=== PATIENT | female | born 1995 | race Caucasian/White ===

== ENCOUNTER 2018-12-08 10:34 | Emergency (ER) | payer OTHER, MEDICAID, SELFPAY ==
[2018-12-08 10:46] VITALS: BP 127/85; PULSE 111; RESP 18; TEMP 36.6; O2SAT 97; BMI 31.1
--- NOTE | 2018-12-08 11:06 | ED.FEMALEGU ---
HPI - Female Genitourinary <Tatiana Carr PA-C - Last Filed: 12/08/18 14:55> General Chief complaint: Urogenital-Female Stated complaint: Ovarian syst rupture Time Seen by Provider: 12/08/18 10:51 Source: patient Mode of arrival: ambulatory Limitations: no limitations History of Present Illness HPI Narrative: This 22-year-old female comes to ED due to worsening left sided pelvic pain which has been present for about 2 weeks. She describes it as crampy and like contractions. She has an appointment with her high school vice principal next week but is concerned about increasing pain. She was seen at another local hospital 9 days ago and diagnosed with hemorrhagic cyst, prescribed and set and tramadol. She states that she is concerned that she had to actually take 1 of the tramadol last night due to worsening pain. She denies possibility of , has IUD for control. She denies any discharge or STD concerns. She states that she has very minimal stinging with urination that she might treat with cranberry juice, just for the last few days. She states that she does have a history of recurrent UTI. She states that she has not had any new abdominal pain, no new back pain, no nausea or vomiting, no fever, chills, sweats or other new symptoms. Pain remains very localized on the left side of the pelvis Related Data Home Medications Medication Instructions Recorded Confirmed metronidazole 500 mg PO BID 12/08/18 12/08/18 naproxen 375 mg PO BID 12/08/18 12/08/18 Previous Rx's Medication Instructions Recorded cyclobenzaprine 5 mg PO BIDP PRN #5 tab 07/23/17 Allergies Allergy/AdvReac Type Severity Reaction Status Date / Time Penicillins [PENICILLINS] AdvReac Intermediate hives Unverified 10/01/17 12:50 Review of Systems <Tatiana Carr PA-C - Last Filed: 12/08/18 14:55> Review of Systems ROS Unobtainable: All systems reviewed & are unremarkable except as noted in HPI and below PFSH <Tatiana Carr PA-C - Last Filed: 12/08/18 14:55> Medical History (Updated 12/08/18 @ 12:58 by Tatiana Carr PA-C) Degenerative disc disease, cervical (Chronic) History of prescription drug abuse (Resolved) Surgical History (Updated 12/08/18 @ 11:34 by Tatiana Carr PA-C) No history of previous surgery (Chronic) Social History Smoking Status: Current every day smoker Social History Smoking Status: Current every day smoker Exam <Tatiana Carr PA-C - Last Filed: 12/08/18 14:55> Narrative Exam Narrative: GENERAL APPEARANCE: Patient sitting comfortably, in no distress. HEENT: PERRL, EOMI, conjunctivae pain LUNGS: Clear to auscultation bilaterally. HEART: Rate and rhythm regular without murmur, normal S1 and S2, no S3 or S4. ABDOMEN: Soft, NT, ND, +BS x 4 quadrants, no CVAT. Mild tenderness left suprapubic area without guarding or rebound EXTREMITIES: No edema, no cyanosis Initial Vital Signs Initial Vital Signs: Vital Signs Temperature 97.8 F 12/08/18 10:46 Pulse Rate 111 H 12/08/18 10:46 Respiratory Rate 18 12/08/18 10:46 Blood Pressure 127/85 12/08/18 10:46 Pulse Oximetry 97 12/08/18 10:46 <Joe Del Castillo DO - Last Filed: 12/08/18 19:15> Initial Vital Signs Initial Vital Signs: Vital Signs Temperature 97.8 F 12/08/18 10:46 Pulse Rate 111 H 12/08/18 10:46 Respiratory Rate 18 12/08/18 10:46 Blood Pressure 127/85 12/08/18 10:46 Pulse Oximetry 97 12/08/18 10:46 Course <Tatiana Carr PA-C - Last Filed: 12/08/18 14:55> Additional Information: Reviewed findings with patient as well as results of her previous workup. Advised follow-up on septated cyst. No hemorrhagic cyst and smaller than present previously, so explained she may have had some bleeding around this explaining her pain. She will use her current medications and agrees to follow up with her WOUND CARE COORDINATOR/high school vice principal. Given disc copy ultrasound report. She agreed to return to ED if acutely worsening symptoms or changes in the interim Orders Ordered: ED Orders 12/08/18 11:30 US pelvic complete Stat Vital Signs - 8 hr 12/08/18 12:22 Pulse Rate 84 Respiratory Rate 16 Blood Pressure [Right Arm] 105/55 L Pulse Oximetry 98 <Joe Del Castillo DO - Last Filed: 12/08/18 19:15> Orders Ordered: ED Orders 12/08/18 11:30 US pelvic complete Stat Vital Signs - 8 hr 12/08/18 12:22 Pulse Rate 84 Respiratory Rate 16 Blood Pressure [Right Arm] 105/55 L Pulse Oximetry 98 MDM - Female Genitourinary <Tatiana Carr PA-C - Last Filed: 12/08/18 14:55> Lab Data Attestation: I reviewed the patient's lab results. Point of Care Testing Test Results Negative Urine Dip Bedside Urine Glucose Negative Bedside Urine Bilirubin - Negative Bedside Urine Ketone - Negative Urine Specific [place] 1.030 Bedside Urine Occult Blood +/- Bedside Urine pH 5.5 Bedside Urine Protein - Negative Bedside Urine Urobilinogen - Negative Bedside Urine Nitrite - Negative Bedside Urine Leukocytes - Negative Esterase Imaging Data pelvis US: Radiologist's impression: Chart Viewer Diagnostics DATE TYPE STATUS AUTHOR Hx 12/08/18 11:30 Jack Barreto Elizabeth H 22, F1995 DEP ER, ED.LOC - Main ED 157.48cm 77.111kg BMI: 31.1kg/m? Urogenital-Female Search Chart hives ONSET Today 12:22 Funmi Ramirez 22 F 1995 [place] [id number] Ultrasound Report Signed Patient: JamesFunmi HMR#: [id number] : 1995Acct:[id number] Age/Sex: 22 / FDate of Service: 12/08/18 Loc: ED Accession Number: [id number] Procedure: US pelvic complete Ordering Provider: Tatiana Carr P.A-C PROCEDURE: US PELVIC COMPLETE INDICATIONS: PAIN; HX HEMORRHAGIC CYST TECHNIQUE: Real-time scanning was performed of the pelvic organs, with image documentation. Additional endovaginal scanning was necessary due to incomplete visualization of the adnexal and endometrial structures by transabdominal scanning. COMPARISON: None. FINDINGS: Transabdominal scanning: Limited scanning through the kidneys shows no hydronephrosis. No pathologic free abdominal or pelvic fluid. Endovaginal scanning: Uterus: Uterus is normal in size at 7.8 x 3.2 x 5.7 cm. The endometrium measures 3-4 mm in combined thickness. IUD appears appropriately positioned Ovaries: Right ovary 2.6 x 1.9 x 1.7 cm and is unremarkable. Left ovary 1.8 x 1.7 1.6 cm. 1.2 x 0.9 x 0.9 cm septated cyst, versus closely apposed multiple follicles, is seen. No definite involuting or hemorrhagic cyst is identified. IMPRESSION: Appropriately positioned IUD. No definite evidence of hemorrhagic cyst. No pathologic pelvic free fluid. Mildly complicated left ovarian cyst. Dictated by: Jack Barreto M.D. on 12/08/2018 at 12:59 Approved by: Jack Barreto M.D. on 12/08/2018 at 13:02 <Joe Del Castillo DO - Last Filed: 12/08/18 19:15> Lab Data Point of Care Testing Test Results Negative Urine Dip Bedside Urine Glucose Negative Bedside Urine Bilirubin - Negative Bedside Urine Ketone - Negative Urine Specific [place] 1.030 Bedside Urine Occult Blood +/- Bedside Urine pH 5.5 Bedside Urine Protein - Negative Bedside Urine Urobilinogen - Negative Bedside Urine Nitrite - Negative Bedside Urine Leukocytes - Negative Esterase Discharge Plan Departure Patient Disposition: Home Clinical Impression: Ovarian cyst Qualifiers: Laterality: left Qualified Code(s): N83.202 - Unspecified ovarian cyst, left side Discharge Date/Time: 12/08/18 13:06 Interventions: ED Discharge Assessment Last Done: 12/08/18 13:06 Instructions: DI for Ovarian Cyst Activity Restrictions/Additional Instructions: Your ultrasound today did show a left-sided cyst, but it is not bleeding at this point, so may be the increased pain that you have had was from bleeding around the cyst. You should follow-up with your high school vice principal as we talked about to make sure this is resolving as expected. Please take your ultrasound disc with you. Please take your naproxen regularly. When you need to take tramadol, do that and take it with a Tylenol as they work well together. Your urine testing was negative for or infection today. You can talk with your high school vice principal when you see her next week about whether you want to treat the BV that showed up on previous testing. You should return to the ED as we talked about if you have acutely worsening or new symptoms such as vomiting or fever, or abrupt change in pain. Prescriptions: No Action cyclobenzaprine 5 MG tablet 5 mg PO BIDP PRNQty: 5 RF: 0 naproxen 375 mg tablet 375 mg PO BID RF: 0 metronidazole 500 mg tablet 500 mg PO BID RF: 0 Referrals: Minerva Hightower ARNP [Non-Staff] - Brittany Rodriguez [Non-Staff] - <Joe Del Castillo DO - Last Filed: 12/08/18 19:15> Cosign ED Attending Kaycee Attestation: I was immediately available in the department for consultation. Documentation has been reviewed. I agree with assessment and plan.
--- NOTE | 2018-12-08 11:30 | DI.US.S_ITS ---
PROCEDURE: US PELVIC COMPLETE INDICATIONS: PAIN; HX HEMORRHAGIC CYST TECHNIQUE: Real-time scanning was performed of the pelvic organs, with image documentation. Additional endovaginal scanning was necessary due to incomplete visualization of the adnexal and endometrial structures by transabdominal scanning. COMPARISON: None. FINDINGS: Transabdominal scanning: Limited scanning through the kidneys shows no hydronephrosis. No pathologic free abdominal or pelvic fluid. Endovaginal scanning: Uterus: Uterus is normal in size at 7.8 x 3.2 x 5.7 cm. The endometrium measures 3-4 mm in combined thickness. IUD appears appropriately positioned Ovaries: Right ovary 2.6 x 1.9 x 1.7 cm and is unremarkable. Left ovary 1.8 x 1.7 1.6 cm. 1.2 x 0.9 x 0.9 cm septated cyst, versus closely apposed multiple follicles, is seen. No definite involuting or hemorrhagic cyst is identified. IMPRESSION: Appropriately positioned IUD. No definite evidence of hemorrhagic cyst. No pathologic pelvic free fluid. Mildly complicated left ovarian cyst. Dictated by: Jack Barreto M.D. on 12/08/2018 at 12:59 Approved by: Jack Barreto M.D. on 12/08/2018 at 13:02
--- NOTE | 2018-12-08 11:34 | ED_ITS ---
HPI - Female Genitourinary <Tatiana Carr PA-C - Last Filed: 12/08/18 14:55> General Chief complaint: Urogenital-Female Stated complaint: Ovarian syst rupture Time Seen by Provider: 12/08/18 10:51 Source: patient Mode of arrival: ambulatory Limitations: no limitations History of Present Illness HPI Narrative: This 22-year-old female comes to ED due to worsening left sided pelvic pain which has been present for about 2 weeks. She describes it as crampy and like contractions. She has an appointment with her marsh buggy operator next week but is concerned about increasing pain. She was seen at another local hospital 9 days ago and diagnosed with hemorrhagic cyst, prescribed and set and tramadol. She states that she is concerned that she had to actually take 1 of the tramadol last night due to worsening pain. She denies possibility of , has IUD for control. She denies any discharge or STD concerns. She states that she has very minimal stinging with urination that she might treat with cranberry juice, just for the last few days. She states that she does have a history of recurrent UTI. She states that she has not had any new abdominal pain, no new back pain, no nausea or vomiting, no fever, chills, sweats or other new symptoms. Pain remains very localized on the left side of the pelvis Related Data Home Medications Medication Instructions Recorded Confirmed metronidazole 500 mg PO BID 12/08/18 12/08/18 naproxen 375 mg PO BID 12/08/18 12/08/18 Previous Rx's Medication Instructions Recorded cyclobenzaprine 5 mg PO BIDP PRN #5 tab 07/23/17 Allergies Allergy/AdvReac Type Severity Reaction Status Date / Time Penicillins [PENICILLINS] AdvReac Intermediate hives Unverified 10/01/17 12:50 Review of Systems <Tatiana Carr PA-C - Last Filed: 12/08/18 14:55> Review of Systems ROS Unobtainable: All systems reviewed & are unremarkable except as noted in HPI and below PFSH <Tatiana Carr PA-C - Last Filed: 12/08/18 14:55> Medical History (Updated 12/08/18 @ 12:58 by Tatiana Carr PA-C) Degenerative disc disease, cervical (Chronic) History of prescription drug abuse (Resolved) Surgical History (Updated 12/08/18 @ 11:34 by Tatiana Carr PA-C) No history of previous surgery (Chronic) Social History Smoking Status: Current every day smoker Social History Smoking Status: Current every day smoker Exam <Tatiana Carr PA-C - Last Filed: 12/08/18 14:55> Narrative Exam Narrative: GENERAL APPEARANCE: Patient sitting comfortably, in no distress. HEENT: PERRL, EOMI, conjunctivae pain LUNGS: Clear to auscultation bilaterally. HEART: Rate and rhythm regular without murmur, normal S1 and S2, no S3 or S4. ABDOMEN: Soft, NT, ND, +BS x 4 quadrants, no CVAT. Mild tenderness left suprapubic area without guarding or rebound EXTREMITIES: No edema, no cyanosis Initial Vital Signs Initial Vital Signs: Vital Signs Temperature 97.8 F 12/08/18 10:46 Pulse Rate 111 H 12/08/18 10:46 Respiratory Rate 18 12/08/18 10:46 Blood Pressure 127/85 12/08/18 10:46 Pulse Oximetry 97 12/08/18 10:46 <Joe Del Castillo DO - Last Filed: 12/08/18 19:15> Initial Vital Signs Initial Vital Signs: Vital Signs Temperature 97.8 F 12/08/18 10:46 Pulse Rate 111 H 12/08/18 10:46 Respiratory Rate 18 12/08/18 10:46 Blood Pressure 127/85 12/08/18 10:46 Pulse Oximetry 97 12/08/18 10:46 Course <Tatiana Carr PA-C - Last Filed: 12/08/18 14:55> Additional Information: Reviewed findings with patient as well as results of her previous workup. Advised follow-up on septated cyst. No hemorrhagic cyst and smaller than present previously, so explained she may have had some bleeding around this explaining her pain. She will use her current medications and agrees to follow up with her ADVERTISING ANALYST/marsh buggy operator. Given disc copy ultrasound report. She agreed to return to ED if acutely worsening symptoms or changes in the interim Orders Ordered: ED Orders 12/08/18 11:30 US pelvic complete Stat Vital Signs - 8 hr 12/08/18 12:22 Pulse Rate 84 Respiratory Rate 16 Blood Pressure [Right Arm] 105/55 L Pulse Oximetry 98 <Joe Del Castillo DO - Last Filed: 12/08/18 19:15> Orders Ordered: ED Orders 12/08/18 11:30 US pelvic complete Stat Vital Signs - 8 hr 12/08/18 12:22 Pulse Rate 84 Respiratory Rate 16 Blood Pressure [Right Arm] 105/55 L Pulse Oximetry 98 MDM - Female Genitourinary <Tatiana Carr PA-C - Last Filed: 12/08/18 14:55> Lab Data Attestation: I reviewed the patient's lab results. Point of Care Testing Test Results Negative Urine Dip Bedside Urine Glucose Negative Bedside Urine Bilirubin - Negative Bedside Urine Ketone - Negative Urine Specific [place] 1.030 Bedside Urine Occult Blood +/- Bedside Urine pH 5.5 Bedside Urine Protein - Negative Bedside Urine Urobilinogen - Negative Bedside Urine Nitrite - Negative Bedside Urine Leukocytes - Negative Esterase Imaging Data pelvis US: Radiologist's impression: Chart Viewer Diagnostics DATE TYPE STATUS AUTHOR Hx 12/08/18 11:30 Jack Barreto Elizabeth H 22, F1995 DEP ER, ED.LOC - Main ED 157.48cm 77.111kg BMI: 31.1kg/m? Urogenital-Female Search Chart hives ONSET Today 12:22 Funmi Ramirez 22 F 1995 [place] [id number] Ultrasound Report Signed Patient: JamesFunmi HMR#: [id number] : 1995Acct:[id number] Age/Sex: 22 / FDate of Service: 12/08/18 Loc: ED Accession Number: [id number] Procedure: US pelvic complete Ordering Provider: Tatiana Carr P.A-C PROCEDURE: US PELVIC COMPLETE INDICATIONS: PAIN; HX HEMORRHAGIC CYST TECHNIQUE: Real-time scanning was performed of the pelvic organs, with image documentation. Additional endovaginal scanning was necessary due to incomplete visualization of the adnexal and endometrial structures by transabdominal scanning. COMPARISON: None. FINDINGS: Transabdominal scanning: Limited scanning through the kidneys shows no hydronephrosis. No pathologic free abdominal or pelvic fluid. Endovaginal scanning: Uterus: Uterus is normal in size at 7.8 x 3.2 x 5.7 cm. The endometrium measures 3-4 mm in combined thickness. IUD appears appropriately positioned Ovaries: Right ovary 2.6 x 1.9 x 1.7 cm and is unremarkable. Left ovary 1.8 x 1.7 1.6 cm. 1.2 x 0.9 x 0.9 cm septated cyst, versus closely apposed multiple follicles, is seen. No definite involuting or hemorrhagic cyst is identified. IMPRESSION: Appropriately positioned IUD. No definite evidence of hemorrhagic cyst. No pathologic pelvic free fluid. Mildly complicated left ovarian cyst. Dictated by: Jack Barreto M.D. on 12/08/2018 at 12:59 Approved by: Jack Barreto M.D. on 12/08/2018 at 13:02 <Joe Del Castillo DO - Last Filed: 12/08/18 19:15> Lab Data Point of Care Testing Test Results Negative Urine Dip Bedside Urine Glucose Negative Bedside Urine Bilirubin - Negative Bedside Urine Ketone - Negative Urine Specific [place] 1.030 Bedside Urine Occult Blood +/- Bedside Urine pH 5.5 Bedside Urine Protein - Negative Bedside Urine Urobilinogen - Negative Bedside Urine Nitrite - Negative Bedside Urine Leukocytes - Negative Esterase Discharge Plan Departure Patient Disposition: Home Clinical Impression: Ovarian cyst Qualifiers: Laterality: left Qualified Code(s): N83.202 - Unspecified ovarian cyst, left side Discharge Date/Time: 12/08/18 13:06 Interventions: ED Discharge Assessment Last Done: 12/08/18 13:06 Instructions: DI for Ovarian Cyst Activity Restrictions/Additional Instructions: Your ultrasound today did show a left-sided cyst, but it is not bleeding at this point, so may be the increased pain that you have had was from bleeding around the cyst. You should follow-up with your marsh buggy operator as we talked about to make sure this is resolving as expected. Please take your ultrasound disc with you. Please take your naproxen regularly. When you need to take tramadol, do that and take it with a Tylenol as they work well together. Your urine testing was negative for or infection today. You can talk with your marsh buggy operator when you see her next week about whether you want to treat the BV that showed up on previous testing. You should return to the ED as we talked about if you have acutely worsening or new symptoms such as vomiting or fever, or abrupt change in pain. Prescriptions: No Action cyclobenzaprine 5 MG tablet 5 mg PO BIDP PRNQty: 5 RF: 0 naproxen 375 mg tablet 375 mg PO BID RF: 0 metronidazole 500 mg tablet 500 mg PO BID RF: 0 Referrals: Minerva Hightower ARNP [Non-Staff] - Brittany Rodriguez [Non-Staff] - <Joe Del Castillo DO - Last Filed: 12/08/18 19:15> Cosign ED Attending Kaycee Attestation: I was immediately available in the department for consultation. Documentation has been reviewed. I agree with assessment and plan.
--- NOTE | 2018-12-08 12:17 | PC.NURSE ---
seen and evaluated at [facility] a week ago, given rx narcotics states, not better, now with left lower abdominal pain radiating to the back with radiating leg pain, states, has back nerve issue in the past. denies fever,vomiting, has nausea, normal last bm yesterday. described discomfort as pulling muscles. better at rest, worsen with activity. has IUD last menses august 2017
[2018-12-08 12:22] VITALS: BP 105/55; PULSE 84; RESP 16; O2SAT 98
== END 2018-12-08 13:06 | disposition home or self-care (01) ==
PROVIDERS: Emergency Provider Internal Medicine
DX: N83.202 Unspecified ovarian cyst, left side (principal)
CPT/HCPCS: 76830; 76856; 81003; 81025; 99282; 99283

== ENCOUNTER 2019-01-02 12:50 | Emergency (ER) | payer OTHER, MEDICAID, SELFPAY ==
[2019-01-02 13:15] VITALS: BP 115/63; PULSE 92; RESP 18; TEMP 36.8; O2SAT 98
[2019-01-02 14:33] LABS: Bacteria Urine None Seen; RBC Urine None Seen (0-5/HPF)
[2019-01-02 14:36] LABS: Appearance Urine UA CLEAR; Bilirubin Urine UA NEGATIVE (NEGATIVE); Color Urine UA YELLOW; Glucose Urine UA NEGATIVE (Negative); Ketones Urine UA NEGATIVE (NEGATIVE); Leukocyte Esterase Urine UA NEGATIVE (NEGATIVE); Nitrite Urine UA NEGATIVE (Negative); Occult Blood Urine UA NEGATIVE (Negative); Protein Urine UA NEGATIVE (Negative); Urobilinogen Urine UA 0.2 E.U./dL (0.2); pH Urine UA 6.5 (4.5-8.0)
[2019-01-02 14:38] LABS: Pregnancy Test Urine Negative (Negative)
[2019-01-02 14:41] LABS: Culture Indicated Urine Cult Not Indicated; Squamous Epithelial Cell Urine 1-5 /HPF (0-5/HPF); WBC Urine 0-1/HPF (0-5/HPF)
--- NOTE | 2019-01-02 14:59 | ED.ABDPAIN ---
HPI - Abdominal Pain <JAILYN Blake - Last Filed: 01/02/19 22:04> General Chief Complaint: Abdominal Pain Stated Complaint: SHARP LOWER ABDOMINAL PAIN Time Seen by Provider: 01/02/19 14:31 Source: patient Mode of arrival: ambulatory Limitations: no limitations History of Present Illness HPI narrative: 23-year-old female who has a history of a bleeding ovarian cyst and currently has an IUD that was placed in July of this year, presents emergency department complaining of lower pelvic pain starting yesterday after having sex. States she took a tramadol last night because the pain is keeping her awake, after the medication she was able to sleep 7 hours. States pain is a 8/10 sharp aching that has gotten slightly better today. This morning when she woke up she was walking across the floor when she felt lightheaded and apparently passed out, this was witnessed by her , she states it lasted a few minutes. Denies chest pain, head trauma, shortness of breath, nausea, vomiting, change in bowel patterns, dysuria, vaginal discharge, or concern for STDs. Pain Consistency: constant Location: diffuse Severity scale (1-10): 8 Quality: aching Relieving factors: nothing Exacerbating factors: nothing Related Data Home Medications Medication Instructions Recorded Confirmed metronidazole 500 mg PO BID 12/08/18 12/08/18 naproxen 375 mg PO BID 12/08/18 12/08/18 Previous Rx's Medication Instructions Recorded cyclobenzaprine 5 mg PO BIDP PRN #5 tab 07/23/17 Allergies Allergy/AdvReac Type Severity Reaction Status Date / Time Penicillins [PENICILLINS] AdvReac Intermediate hives Unverified 10/01/17 12:50 Review of Systems <JAILYN Blake - Last Filed: 01/02/19 22:04> Review of Systems REVIEW OF SYSTEMS: GENERAL: Denies fever, chills, malaise, or wt. loss. HENT: No head trauma, sore throat, or dysphagia. EYES: No loss of vision, double vision, eye pain, or irritation. CARDIOVASCULAR: No chest pain, palpitations, or orthopnea. RESPIRATORY: No shortness of breath or cough. GASTROINTESTINAL: Complains of lower abdominal pain, see HPI GENITOURINARY: No flank pain, urinary incontinence, hesitancy, frequency, or dysuria. Complains of pain after coitus, see HPI. MUSCULOSKELETAL: No pain, weakness, or trauma. INTEGUMENTARY: No rash, lesions, or pruritus. NEURO: No numbness, tingling, memory loss, confusion, or headaches. PSYCH: No behavior or mood changes. PFSH <JAILYN Blake - Last Filed: 01/02/19 22:04> Medical History Degenerative disc disease, cervical (Chronic) History of prescription drug abuse (Resolved) Surgical History No history of previous surgery (Chronic) Social History Smoking Status: Current every day smoker Social History Smoking Status: Current every day smoker Exam <JAILYN Blake - Last Filed: 01/02/19 22:04> Initial Vital Signs Initial Vital Signs: Vital Signs Temperature 98.2 F 01/02/19 13:15 Pulse Rate 92 H 01/02/19 13:15 Respiratory Rate 18 01/02/19 13:15 Blood Pressure 115/63 01/02/19 13:15 Pulse Oximetry 98 01/02/19 13:15 PHYSICAL EXAMINATION: GENERAL: Well groomed, alert, and cooperative. Answers questions promptly and appropriately. Vital signs noted. HENT: Normocephalic, atraumatic. Hearing intact. Oral mucosa is pink and moist. EYES: Conjunctiva pink, sclera white, no periorbital swelling. CARDIOVASCULAR: S1 and S2 sounds normal. Regular rate and rhythm, no murmurs, clicks, or bruits. No pedal edema. RESPIRATORY: Normal respiratory rate, trachea midline, airway patent. No stridor, nasal flaring or accessory muscle use. Lungs are clear in all [place] without wheeze, rhonchi, or crackles. GASTROINTESTINAL: Bowel sounds normoactive. Abdomen is soft. Very slight tenderness lower mid abdomen/pelvic area with deep palpation No organomegaly, no palpable masses. GENITALURINARY: No flank tenderness. MUSCULOSKELETAL: Normal gait and coordination. Equal tone and mass bilaterally. EXTREMITIES: CMS intact, no pedal edema. SKIN: Warm, dry, soft, appropriate color for ethnicity. No lesions, rashes, or wounds. NEURO: Alert and Oriented X 3. Good coordination. No ataxia, or sensory deficits, or cognitive issues. PSYCH: Appropriate affect and mood. <Ramonita Mc DO - Last Filed: 01/05/19 18:41> Initial Vital Signs Initial Vital Signs: Vital Signs Temperature 98.2 F 01/02/19 13:15 Pulse Rate 92 H 01/02/19 13:15 Respiratory Rate 18 01/02/19 13:15 Blood Pressure 115/63 01/02/19 13:15 Pulse Oximetry 98 01/02/19 13:15 Course <JAILYN Blake - Last Filed: 01/02/19 22:04> Course Narrative: Patient states she is feeling a little better after her emergency department stay. Orders Ordered: ED Orders 01/02/19 13:17 EKG-12 Lead Stat 01/02/19 14:15 Test Urine Stat Urinalysis and Microscopic Stat 01/02/19 14:50 Complete Blood Count AUTO DIFF Stat Comprehensive Metabolic Panel Stat Lipase Stat Partial Thromboplastin Time Stat Prothrombin Time INR Stat 01/02/19 15:05 US pelvic complete Stat Consultations Consultation #1: Patient staffed with Dr. Mc. Vital Signs - 8 hr 01/02/19 15:46 01/02/19 16:53 Pulse Rate 91 H 60 Respiratory Rate 16 15 Blood Pressure [Left Arm] 108/58 L 113/66 Pulse Oximetry 99 100 <Ramonita Mc DO - Last Filed: 01/05/19 18:41> Orders Ordered: ED Orders 01/02/19 13:17 EKG-12 Lead Stat 01/02/19 14:15 Test Urine Stat Urinalysis and Microscopic Stat 01/02/19 14:50 Complete Blood Count AUTO DIFF Stat Comprehensive Metabolic Panel Stat Lipase Stat Partial Thromboplastin Time Stat Prothrombin Time INR Stat 01/02/19 15:05 US pelvic complete Stat Vital Signs - 8 hr 01/02/19 15:46 01/02/19 16:53 Pulse Rate 91 H 60 Respiratory Rate 16 15 Blood Pressure [Left Arm] 108/58 L 113/66 Pulse Oximetry 99 100 MDM - Abdominal Pain <JAILYN Blake - Last Filed: 01/02/19 22:04> Medical Records Attestation: I reviewed the patient's medical records. Lab Data Attestation: I reviewed the patient's lab results. Result diagrams: 01/02/19 14:50 01/02/19 14:50 Lab Results 01/02/19 01/02/19 01/02/19 Range/Units 14:15 14:15 14:50 WBC 8.6 (4.5-11.0) X10^3/uL RBC 4.81 (4.0-5.2) X10^6/uL Hgb 13.8 (12.0-16.0) g/dL Hct 40.3 (36-46) % MCV 83.7 (80-100) fL MCH 28.6 (26-34) PG MCHC 34.2 (30-36) % RDW 13.1 (11.6-14.8) % Plt Count 324 (150-400) X10^3/uL Neut % (Auto) 66.0 (50-75) % Lymph % (Auto) 22.8 L (25-40) % [place] % (Auto) 5.9 (3-14) % Eos % (Auto) 4.3 H (2-4) % Baso % (Auto) 1.0 (0-2) % Neut # (Auto) 5700 (8059-5672) /uL Lymph # (Auto) 2000 (7746-9640) /uL [place] # (Auto) 500 (0-900) /uL Eos # (Auto) 400 (0-450) /uL Baso # (Auto) 100 (0-100) /uL PT (10.1-12.7) SECONDS INR (0.9-1.3) APTT (26.4-36.2) SECONDS Sodium (137-145) mmol/L Potassium (3.4-5.1) mmol/L Chloride (98-107) mmol/L Carbon Dioxide (22-32) mmol/L BUN (7-17) mg/dL Creatinine (0.52-1.04) mg/dL Estimated GFR (>60) mL/min BUN/Creatinine Ratio (6-22) Glucose (70-100) mg/dL Calcium (8.4-10.2) mg/dL Total Bilirubin (0.2-1.3) mg/dL AST (14-36) IU/L ALT (9-52) IU/L Alkaline Phosphatase (38-126) U/L Total Protein (6.3-8.2) g/dL Albumin (3.5-5.0) g/dL Globulin (1.7-4.1) g/dL Albumin/Globulin Ratio (1.0-2.8) Lipase (23-300) U/L Urine Color Yellow Urine Appearance Clear Urine pH 6.5 (4.5-8.0) Ur Specific [place] 1.020 (1.000-1.035) Urine Protein Negative (Negative) Urine Glucose (UA) Negative (Negative) g/dL Urine Ketones Negative (NEGATIVE) Urine Occult Blood Negative (Negative) Urine Nitrate Negative (Negative) Urine Bilirubin Negative (NEGATIVE) Urine Urobilinogen 0.2 (0.2) E.U./dL Ur Leukocyte Esterase Negative (NEGATIVE) Urine RBC None seen (0-5/HPF) Urine WBC 0-1/hpf (0-5/HPF) Ur Squamous Epith Cells 1-5 /hpf (0-5/HPF) Urine Bacteria None seen (None) Ur Culture Indicated? Cult not indicated Urine Test Negative (Negative) 01/02/19 01/02/19 Range/Units 14:50 14:50 WBC (4.5-11.0) X10^3/uL RBC (4.0-5.2) X10^6/uL Hgb (12.0-16.0) g/dL Hct (36-46) % MCV (80-100) fL MCH (26-34) PG MCHC (30-36) % RDW (11.6-14.8) % Plt Count (150-400) X10^3/uL Neut % (Auto) (50-75) % Lymph % (Auto) (25-40) % [place] % (Auto) (3-14) % Eos % (Auto) (2-4) % Baso % (Auto) (0-2) % Neut # (Auto) (0977-4551) /uL Lymph # (Auto) (2348-0170) /uL [place] # (Auto) (0-900) /uL Eos # (Auto) (0-450) /uL Baso # (Auto) (0-100) /uL PT 11.5 (10.1-12.7) SECONDS INR 1.0 (0.9-1.3) APTT 27 (26.4-36.2) SECONDS Sodium 141 (137-145) mmol/L Potassium 4.4 (3.4-5.1) mmol/L Chloride 104 (98-107) mmol/L Carbon Dioxide 26 (22-32) mmol/L BUN 11 (7-17) mg/dL Creatinine 0.60 (0.52-1.04) mg/dL Estimated GFR > 60.0 (>60) mL/min BUN/Creatinine Ratio 18.3 (6-22) Glucose 91 (70-100) mg/dL Calcium 9.4 (8.4-10.2) mg/dL Total Bilirubin 0.5 (0.2-1.3) mg/dL AST 21 (14-36) IU/L ALT 22 (9-52) IU/L Alkaline Phosphatase 63 (38-126) U/L Total Protein 7.3 (6.3-8.2) g/dL Albumin 4.3 (3.5-5.0) g/dL Globulin 3.0 (1.7-4.1) g/dL Albumin/Globulin Ratio 1.4 (1.0-2.8) Lipase 30 (23-300) U/L Urine Color Urine Appearance Urine pH (4.5-8.0) Ur Specific [place] (1.000-1.035) Urine Protein (Negative) Urine Glucose (UA) (Negative) g/dL Urine Ketones (NEGATIVE) Urine Occult Blood (Negative) Urine Nitrate (Negative) Urine Bilirubin (NEGATIVE) Urine Urobilinogen (0.2) E.U./dL Ur Leukocyte Esterase (NEGATIVE) Urine RBC (0-5/HPF) Urine WBC (0-5/HPF) Ur Squamous Epith Cells (0-5/HPF) Urine Bacteria (None) Ur Culture Indicated? Urine Test (Negative) Imaging Data Pelvic US: Radiologist's impression: [address] [address] Ultrasound Report Addendum Patient: Funmi Ramirez HMR#: [id number] : 1995Acct:[id number] Age/Sex: FDate of Service: 01/02/19 Loc: ED Accession Number: [id number] Procedure: US pelvic complete Ordering Provider: Jadyn Zamarripa ADDENDUM This report includes an Addendum and supersedes previous reports for this exam. PROCEDURE: US PELVIC COMPLETE INDICATIONS: POST COITAL PELVIC PAIN TECHNIQUE: Real-time scanning was performed of the pelvic organs, with image documentation. Additional endovaginal scanning was necessary due to incomplete visualization of the adnexal and endometrial structures by transabdominal scanning. COMPARISON: [facility], , US PELVIC COMPLETE, 12/08/2018, 11:57. FINDINGS: Transabdominal scanning: A mild amount of free pelvic fluid is seen, which is considered to be within physiologic limits. Limited scanning through the kidneys shows no hydronephrosis. Endovaginal scanning: Uterus: Uterus is normal in size at 8.1 x 5 x 3.1 cm. The endometrium measures 3 mm in combined thickness. Ovaries: The right ovary measures 3.2 x 2.2 x 1 cm and demonstrates the presence of a likely outside cyst that measures 1.3 x 1.0 0.8 cm. The left ovary measures 1.8 x 1.9 x 1 cm. No adnexal masses are seen. IMPRESSION: These imaging findings most likely represent a ruptured right ovarian cyst. Dictated by: Timi Carty M.D. on 01/02/2019 at 16:06 Approved by: Timi Carty M.D. on 01/02/2019 at 16:08 ADDENDUM: The study was reviewed at the request of referring provider with attention to patient's IUD. An IUD is demonstrated in appropriate position within the uterus extending into the fundal endometrium. Dictated by: Amadeo Ramos M.D. on 01/02/2019 at 17:22 Approved by: Amadeo Ramos M.D. on 01/02/2019 at 17:23 Addendum Dictated By:Amadeo Ramos MD Addendum Signed By: Addendum Cosigned By: DD/ TD/TT: 01/02/19 PROCEDURE: US PELVIC COMPLETE INDICATIONS: POST COITAL PELVIC PAIN TECHNIQUE: Real-time scanning was performed of the pelvic organs, with image documentation. Additional endovaginal scanning was necessary due to incomplete visualization of the adnexal and endometrial structures by transabdominal scanning. COMPARISON: [facility], , US PELVIC COMPLETE, 12/08/2018, 11:57. FINDINGS: Transabdominal scanning: A mild amount of free pelvic fluid is seen, which is considered to be within physiologic limits. Limited scanning through the kidneys shows no hydronephrosis. Endovaginal scanning: Uterus: Uterus is normal in size at 8.1 x 5 x 3.1 cm. The endometrium measures 3 mm in combined thickness. Ovaries: The right ovary measures 3.2 x 2.2 x 1 cm and demonstrates the presence of a likely outside cyst that measures 1.3 x 1.0 0.8 cm. The left ovary measures 1.8 x 1.9 x 1 cm. No adnexal masses are seen. IMPRESSION: These imaging findings most likely represent a ruptured right ovarian cyst. Dictated by: Timi Carty M.D. on 01/02/2019 at 16:06 Approved by: Timi Carty M.D. on 01/02/2019 at 16:08 [facility] Narrative Medical decision making narrative: Unsure exact cause of patient's pain as it was resolving the emergency department stay. Suspect that ruptured cyst may contribute to pain. Less likely id misplacement as correct placement was seen on ultrasound, less likely infection due to normal labs, and rather benign exam. Patient was given fluconazole as she states she gets frequent yeast infections. Patient instructed to follow up with Gynecology if symptoms persist. Consider further test such as vaginal swabs if symptoms continue, very low suspicion for STDs as she states she has been with her partner for the past 3 years. <aRmonita Mc, DO - Last Filed: 01/05/19 18:41> Lab Data Lab Results 01/02/19 01/02/19 01/02/19 Range/Units 14:15 14:15 14:50 WBC 8.6 (4.5-11.0) X10^3/uL RBC 4.81 (4.0-5.2) X10^6/uL Hgb 13.8 (12.0-16.0) g/dL Hct 40.3 (36-46) % MCV 83.7 (80-100) fL MCH 28.6 (26-34) PG MCHC 34.2 (30-36) % RDW 13.1 (11.6-14.8) % Plt Count 324 (150-400) X10^3/uL Neut % (Auto) 66.0 (50-75) % Lymph % (Auto) 22.8 L (25-40) % [place] % (Auto) 5.9 (3-14) % Eos % (Auto) 4.3 H (2-4) % Baso % (Auto) 1.0 (0-2) % Neut # (Auto) 5700 (9311-0268) /uL Lymph # (Auto) 2000 (8199-0114) /uL [place] # (Auto) 500 (0-900) /uL Eos # (Auto) 400 (0-450) /uL Baso # (Auto) 100 (0-100) /uL PT (10.1-12.7) SECONDS INR (0.9-1.3) APTT (26.4-36.2) SECONDS Sodium (137-145) mmol/L Potassium (3.4-5.1) mmol/L Chloride (98-107) mmol/L Carbon Dioxide (22-32) mmol/L BUN (7-17) mg/dL Creatinine (0.52-1.04) mg/dL Estimated GFR (>60) mL/min BUN/Creatinine Ratio (6-22) Glucose (70-100) mg/dL Calcium (8.4-10.2) mg/dL Total Bilirubin (0.2-1.3) mg/dL AST (14-36) IU/L ALT (9-52) IU/L Alkaline Phosphatase (38-126) U/L Total Protein (6.3-8.2) g/dL Albumin (3.5-5.0) g/dL Globulin (1.7-4.1) g/dL Albumin/Globulin Ratio (1.0-2.8) Lipase (23-300) U/L Urine Color Yellow Urine Appearance Clear Urine pH 6.5 (4.5-8.0) Ur Specific [place] 1.020 (1.000-1.035) Urine Protein Negative (Negative) Urine Glucose (UA) Negative (Negative) g/dL Urine Ketones Negative (NEGATIVE) Urine Occult Blood Negative (Negative) Urine Nitrate Negative (Negative) Urine Bilirubin Negative (NEGATIVE) Urine Urobilinogen 0.2 (0.2) E.U./dL Ur Leukocyte Esterase Negative (NEGATIVE) Urine RBC None seen (0-5/HPF) Urine WBC 0-1/hpf (0-5/HPF) Ur Squamous Epith Cells 1-5 /hpf (0-5/HPF) Urine Bacteria None seen (None) Ur Culture Indicated? Cult not indicated Urine Test Negative (Negative) 01/02/19 01/02/19 Range/Units 14:50 14:50 WBC (4.5-11.0) X10^3/uL RBC (4.0-5.2) X10^6/uL Hgb (12.0-16.0) g/dL Hct (36-46) % MCV (80-100) fL MCH (26-34) PG MCHC (30-36) % RDW (11.6-14.8) % Plt Count (150-400) X10^3/uL Neut % (Auto) (50-75) % Lymph % (Auto) (25-40) % [place] % (Auto) (3-14) % Eos % (Auto) (2-4) % Baso % (Auto) (0-2) % Neut # (Auto) (3488-6220) /uL Lymph # (Auto) (4407-5721) /uL [place] # (Auto) (0-900) /uL Eos # (Auto) (0-450) /uL Baso # (Auto) (0-100) /uL PT 11.5 (10.1-12.7) SECONDS INR 1.0 (0.9-1.3) APTT 27 (26.4-36.2) SECONDS Sodium 141 (137-145) mmol/L Potassium 4.4 (3.4-5.1) mmol/L Chloride 104 (98-107) mmol/L Carbon Dioxide 26 (22-32) mmol/L BUN 11 (7-17) mg/dL Creatinine 0.60 (0.52-1.04) mg/dL Estimated GFR > 60.0 (>60) mL/min BUN/Creatinine Ratio 18.3 (6-22) Glucose 91 (70-100) mg/dL Calcium 9.4 (8.4-10.2) mg/dL Total Bilirubin 0.5 (0.2-1.3) mg/dL AST 21 (14-36) IU/L ALT 22 (9-52) IU/L Alkaline Phosphatase 63 (38-126) U/L Total Protein 7.3 (6.3-8.2) g/dL Albumin 4.3 (3.5-5.0) g/dL Globulin 3.0 (1.7-4.1) g/dL Albumin/Globulin Ratio 1.4 (1.0-2.8) Lipase 30 (23-300) U/L Urine Color Urine Appearance Urine pH (4.5-8.0) Ur Specific [place] (1.000-1.035) Urine Protein (Negative) Urine Glucose (UA) (Negative) g/dL Urine Ketones (NEGATIVE) Urine Occult Blood (Negative) Urine Nitrate (Negative) Urine Bilirubin (NEGATIVE) Urine Urobilinogen (0.2) E.U./dL Ur Leukocyte Esterase (NEGATIVE) Urine RBC (0-5/HPF) Urine WBC (0-5/HPF) Ur Squamous Epith Cells (0-5/HPF) Urine Bacteria (None) Ur Culture Indicated? Urine Test (Negative) Discharge Plan Departure Patient Disposition: Home Clinical Impression: Vaginal yeast infection Ovarian cyst Qualifiers: Laterality: right Qualified Code(s): N83.201 - Unspecified ovarian cyst, right side Discharge Date/Time: 01/02/19 18:11 Interventions: ED Discharge Assessment Last Done: 01/02/19 18:08 Instructions: DI for Vaginal Yeast Infection, DI for Ovarian Cyst Activity Restrictions/Additional Instructions: Thank you for entrusting me with your care today. As discussed, your ultrasound shows a right ovarian cyst and that your IUD is in the right place, your labs are within normal limits. Please follow-up with your primary care provider for further evaluation if her symptoms persist. Take ibuprofen 600 mg every 6 hours for the next 3 days to help with pain control. Return to the emergency department if you develop severe pain, profuse vaginal discharge, syncope, or fevers. I prescribed you do a medication for yeast infection, take 1 pill now and then take the other pills 72 hours later. Prescriptions: No Action cyclobenzaprine 5 MG tablet 5 mg PO BIDP PRNQty: 5 RF: 0 naproxen 375 mg tablet 375 mg PO BID RF: 0 metronidazole 500 mg tablet 500 mg PO BID RF: 0 <Ramonita Mc DO - Last Filed: 01/05/19 18:41> Cosign ED Attending Cosignature Attestation: I was immediately available in the department for consultation. This documentation has been reviewed and I agree with assessment and plan. Supervised by Ramonita Mc,
[2019-01-02 15:01] LABS: Add Manual Diff / Slide Review NO; Basophils Absolute Auto 100 /uL (0-100); Eosinophils Absolute Auto 400 /uL (0-450); Eosinophils Percent Auto 4.3 % (2-4); Hematocrit 40.3 % (36-46); Hemoglobin 13.8 g/dL (12.0-16.0); Lymphocytes Absolute Auto 2000 /uL (1100-4500); Lymphocytes Percent Auto 22.8 % (25-40); Mean Corpuscular HGB Conc 34.2 % (30-36); Mean Corpuscular Hemoglobin 28.6 PG (26-34); Mean Corpuscular Volume 83.7 fL (80-100); Monocytes Absolute Auto 500 /uL (0-900); Monocytes Percent Auto 5.9 % (3-14); Neutrophils Absolute Auto 5700 /uL (1500-7000); Platelet Count 324 X10^3/uL (150-400); Red Blood Cell Count 4.81 X10^6/uL (4.0-5.2); Red Cell Distribution Width 13.1 % (11.6-14.8); White Blood Cell Count 8.6 X10^3/uL (4.5-11.0)
--- NOTE | 2019-01-02 15:02 | ED_ITS ---
HPI - Abdominal Pain <JAILYN Blake - Last Filed: 01/02/19 22:04> General Chief Complaint: Abdominal Pain Stated Complaint: SHARP LOWER ABDOMINAL PAIN Time Seen by Provider: 01/02/19 14:31 Source: patient Mode of arrival: ambulatory Limitations: no limitations History of Present Illness HPI narrative: 23-year-old female who has a history of a bleeding ovarian cyst and currently has an IUD that was placed in July of this year, presents emergency department complaining of lower pelvic pain starting yesterday after having sex. States she took a tramadol last night because the pain is keeping her awake, after the medication she was able to sleep 7 hours. States pain is a 8/10 sharp aching that has gotten slightly better today. This morning when she woke up she was walking across the floor when she felt lightheaded and apparently passed out, this was witnessed by her , she states it lasted a few minutes. Denies chest pain, head trauma, shortness of breath, nausea, vomiting, change in bowel patterns, dysuria, vaginal discharge, or concern for STDs. Pain Consistency: constant Location: diffuse Severity scale (1-10): 8 Quality: aching Relieving factors: nothing Exacerbating factors: nothing Related Data Home Medications Medication Instructions Recorded Confirmed metronidazole 500 mg PO BID 12/08/18 12/08/18 naproxen 375 mg PO BID 12/08/18 12/08/18 Previous Rx's Medication Instructions Recorded cyclobenzaprine 5 mg PO BIDP PRN #5 tab 07/23/17 Allergies Allergy/AdvReac Type Severity Reaction Status Date / Time Penicillins [PENICILLINS] AdvReac Intermediate hives Unverified 10/01/17 12:50 Review of Systems <JAILYN Blake - Last Filed: 01/02/19 22:04> Review of Systems REVIEW OF SYSTEMS: GENERAL: Denies fever, chills, malaise, or wt. loss. HENT: No head trauma, sore throat, or dysphagia. EYES: No loss of vision, double vision, eye pain, or irritation. CARDIOVASCULAR: No chest pain, palpitations, or orthopnea. RESPIRATORY: No shortness of breath or cough. GASTROINTESTINAL: Complains of lower abdominal pain, see HPI GENITOURINARY: No flank pain, urinary incontinence, hesitancy, frequency, or dysuria. Complains of pain after coitus, see HPI. MUSCULOSKELETAL: No pain, weakness, or trauma. INTEGUMENTARY: No rash, lesions, or pruritus. NEURO: No numbness, tingling, memory loss, confusion, or headaches. PSYCH: No behavior or mood changes. PFSH <JAILYN Blake - Last Filed: 01/02/19 22:04> Medical History Degenerative disc disease, cervical (Chronic) History of prescription drug abuse (Resolved) Surgical History No history of previous surgery (Chronic) Social History Smoking Status: Current every day smoker Social History Smoking Status: Current every day smoker Exam <JAILYN Blake - Last Filed: 01/02/19 22:04> Initial Vital Signs Initial Vital Signs: Vital Signs Temperature 98.2 F 01/02/19 13:15 Pulse Rate 92 H 01/02/19 13:15 Respiratory Rate 18 01/02/19 13:15 Blood Pressure 115/63 01/02/19 13:15 Pulse Oximetry 98 01/02/19 13:15 PHYSICAL EXAMINATION: GENERAL: Well groomed, alert, and cooperative. Answers questions promptly and appropriately. Vital signs noted. HENT: Normocephalic, atraumatic. Hearing intact. Oral mucosa is pink and moist. EYES: Conjunctiva pink, sclera white, no periorbital swelling. CARDIOVASCULAR: S1 and S2 sounds normal. Regular rate and rhythm, no murmurs, clicks, or bruits. No pedal edema. RESPIRATORY: Normal respiratory rate, trachea midline, airway patent. No stridor, nasal flaring or accessory muscle use. Lungs are clear in all [place] without wheeze, rhonchi, or crackles. GASTROINTESTINAL: Bowel sounds normoactive. Abdomen is soft. Very slight tenderness lower mid abdomen/pelvic area with deep palpation No organomegaly, no palpable masses. GENITALURINARY: No flank tenderness. MUSCULOSKELETAL: Normal gait and coordination. Equal tone and mass bilaterally. EXTREMITIES: CMS intact, no pedal edema. SKIN: Warm, dry, soft, appropriate color for ethnicity. No lesions, rashes, or wounds. NEURO: Alert and Oriented X 3. Good coordination. No ataxia, or sensory deficits, or cognitive issues. PSYCH: Appropriate affect and mood. <Ramonita Mc DO - Last Filed: 01/05/19 18:41> Initial Vital Signs Initial Vital Signs: Vital Signs Temperature 98.2 F 01/02/19 13:15 Pulse Rate 92 H 01/02/19 13:15 Respiratory Rate 18 01/02/19 13:15 Blood Pressure 115/63 01/02/19 13:15 Pulse Oximetry 98 01/02/19 13:15 Course <JAILYN Blake - Last Filed: 01/02/19 22:04> Course Narrative: Patient states she is feeling a little better after her emergency department stay. Orders Ordered: ED Orders 01/02/19 13:17 EKG-12 Lead Stat 01/02/19 14:15 Test Urine Stat Urinalysis and Microscopic Stat 01/02/19 14:50 Complete Blood Count AUTO DIFF Stat Comprehensive Metabolic Panel Stat Lipase Stat Partial Thromboplastin Time Stat Prothrombin Time INR Stat 01/02/19 15:05 US pelvic complete Stat Consultations Consultation #1: Patient staffed with Dr. Mc. Vital Signs - 8 hr 01/02/19 15:46 01/02/19 16:53 Pulse Rate 91 H 60 Respiratory Rate 16 15 Blood Pressure [Left Arm] 108/58 L 113/66 Pulse Oximetry 99 100 <Ramonita Mc DO - Last Filed: 01/05/19 18:41> Orders Ordered: ED Orders 01/02/19 13:17 EKG-12 Lead Stat 01/02/19 14:15 Test Urine Stat Urinalysis and Microscopic Stat 01/02/19 14:50 Complete Blood Count AUTO DIFF Stat Comprehensive Metabolic Panel Stat Lipase Stat Partial Thromboplastin Time Stat Prothrombin Time INR Stat 01/02/19 15:05 US pelvic complete Stat Vital Signs - 8 hr 01/02/19 15:46 01/02/19 16:53 Pulse Rate 91 H 60 Respiratory Rate 16 15 Blood Pressure [Left Arm] 108/58 L 113/66 Pulse Oximetry 99 100 MDM - Abdominal Pain <JAILYN Blake - Last Filed: 01/02/19 22:04> Medical Records Attestation: I reviewed the patient's medical records. Lab Data Attestation: I reviewed the patient's lab results. Result diagrams: 01/02/19 14:50 01/02/19 14:50 Lab Results 01/02/19 01/02/19 01/02/19 Range/Units 14:15 14:15 14:50 WBC 8.6 (4.5-11.0) X10^3/uL RBC 4.81 (4.0-5.2) X10^6/uL Hgb 13.8 (12.0-16.0) g/dL Hct 40.3 (36-46) % MCV 83.7 (80-100) fL MCH 28.6 (26-34) PG MCHC 34.2 (30-36) % RDW 13.1 (11.6-14.8) % Plt Count 324 (150-400) X10^3/uL Neut % (Auto) 66.0 (50-75) % Lymph % (Auto) 22.8 L (25-40) % Garden % (Auto) 5.9 (3-14) % Eos % (Auto) 4.3 H (2-4) % Baso % (Auto) 1.0 (0-2) % Neut # (Auto) 5700 (2974-8900) /uL Lymph # (Auto) 2000 (1088-2562) /uL [place] # (Auto) 500 (0-900) /uL Eos # (Auto) 400 (0-450) /uL Baso # (Auto) 100 (0-100) /uL PT (10.1-12.7) SECONDS INR (0.9-1.3) APTT (26.4-36.2) SECONDS Sodium (137-145) mmol/L Potassium (3.4-5.1) mmol/L Chloride (98-107) mmol/L Carbon Dioxide (22-32) mmol/L BUN (7-17) mg/dL Creatinine (0.52-1.04) mg/dL Estimated GFR (>60) mL/min BUN/Creatinine Ratio (6-22) Glucose (70-100) mg/dL Calcium (8.4-10.2) mg/dL Total Bilirubin (0.2-1.3) mg/dL AST (14-36) IU/L ALT (9-52) IU/L Alkaline Phosphatase (38-126) U/L Total Protein (6.3-8.2) g/dL Albumin (3.5-5.0) g/dL Globulin (1.7-4.1) g/dL Albumin/Globulin Ratio (1.0-2.8) Lipase (23-300) U/L Urine Color Yellow Urine Appearance Clear Urine pH 6.5 (4.5-8.0) Ur Specific [place] 1.020 (1.000-1.035) Urine Protein Negative (Negative) Urine Glucose (UA) Negative (Negative) g/dL Urine Ketones Negative (NEGATIVE) Urine Occult Blood Negative (Negative) Urine Nitrate Negative (Negative) Urine Bilirubin Negative (NEGATIVE) Urine Urobilinogen 0.2 (0.2) E.U./dL Ur Leukocyte Esterase Negative (NEGATIVE) Urine RBC None seen (0-5/HPF) Urine WBC 0-1/hpf (0-5/HPF) Ur Squamous Epith Cells 1-5 /hpf (0-5/HPF) Urine Bacteria None seen (None) Ur Culture Indicated? Cult not indicated Urine Test Negative (Negative) 01/02/19 01/02/19 Range/Units 14:50 14:50 WBC (4.5-11.0) X10^3/uL RBC (4.0-5.2) X10^6/uL Hgb (12.0-16.0) g/dL Hct (36-46) % MCV (80-100) fL MCH (26-34) PG MCHC (30-36) % RDW (11.6-14.8) % Plt Count (150-400) X10^3/uL Neut % (Auto) (50-75) % Lymph % (Auto) (25-40) % [place] % (Auto) (3-14) % Eos % (Auto) (2-4) % Baso % (Auto) (0-2) % Neut # (Auto) (5725-9283) /uL Lymph # (Auto) (3642-3620) /uL Garden # (Auto) (0-900) /uL Eos # (Auto) (0-450) /uL Baso # (Auto) (0-100) /uL PT 11.5 (10.1-12.7) SECONDS INR 1.0 (0.9-1.3) APTT 27 (26.4-36.2) SECONDS Sodium 141 (137-145) mmol/L Potassium 4.4 (3.4-5.1) mmol/L Chloride 104 (98-107) mmol/L Carbon Dioxide 26 (22-32) mmol/L BUN 11 (7-17) mg/dL Creatinine 0.60 (0.52-1.04) mg/dL Estimated GFR > 60.0 (>60) mL/min BUN/Creatinine Ratio 18.3 (6-22) Glucose 91 (70-100) mg/dL Calcium 9.4 (8.4-10.2) mg/dL Total Bilirubin 0.5 (0.2-1.3) mg/dL AST 21 (14-36) IU/L ALT 22 (9-52) IU/L Alkaline Phosphatase 63 (38-126) U/L Total Protein 7.3 (6.3-8.2) g/dL Albumin 4.3 (3.5-5.0) g/dL Globulin 3.0 (1.7-4.1) g/dL Albumin/Globulin Ratio 1.4 (1.0-2.8) Lipase 30 (23-300) U/L Urine Color Urine Appearance Urine pH (4.5-8.0) Ur Specific [place] (1.000-1.035) Urine Protein (Negative) Urine Glucose (UA) (Negative) g/dL Urine Ketones (NEGATIVE) Urine Occult Blood (Negative) Urine Nitrate (Negative) Urine Bilirubin (NEGATIVE) Urine Urobilinogen (0.2) E.U./dL Ur Leukocyte Esterase (NEGATIVE) Urine RBC (0-5/HPF) Urine WBC (0-5/HPF) Ur Squamous Epith Cells (0-5/HPF) Urine Bacteria (None) Ur Culture Indicated? Urine Test (Negative) Imaging Data Pelvic US: Radiologist's impression: [address] [address] Ultrasound Report Addendum Patient: Funmi Ramirez HMR#: [id number] : 1995Acct:[id number] Age/Sex: FDate of Service: 01/02/19 Loc: ED Accession Number: [id number] Procedure: US pelvic complete Ordering Provider: Jadyn Zamarripa ADDENDUM This report includes an Addendum and supersedes previous reports for this exam. PROCEDURE: US PELVIC COMPLETE INDICATIONS: POST COITAL PELVIC PAIN TECHNIQUE: Real-time scanning was performed of the pelvic organs, with image documentation. Additional endovaginal scanning was necessary due to incomplete visualization of the adnexal and endometrial structures by transabdominal scanning. COMPARISON: [facility], , US PELVIC COMPLETE, 12/08/2018, 11:57. FINDINGS: Transabdominal scanning: A mild amount of free pelvic fluid is seen, which is considered to be within physiologic limits. Limited scanning through the kidneys shows no hydronephrosis. Endovaginal scanning: Uterus: Uterus is normal in size at 8.1 x 5 x 3.1 cm. The endometrium measures 3 mm in combined thickness. Ovaries: The right ovary measures 3.2 x 2.2 x 1 cm and demonstrates the presence of a likely outside cyst that measures 1.3 x 1.0 0.8 cm. The left ovary measures 1.8 x 1.9 x 1 cm. No adnexal masses are seen. IMPRESSION: These imaging findings most likely represent a ruptured right ovarian cyst. Dictated by: Timi Carty M.D. on 01/02/2019 at 16:06 Approved by: Timi Carty M.D. on 01/02/2019 at 16:08 ADDENDUM: The study was reviewed at the request of referring provider with attention to patient's IUD. An IUD is demonstrated in appropriate position within the uterus extending into the fundal endometrium. Dictated by: Amadeo Ramos M.D. on 01/02/2019 at 17:22 Approved by: Amadeo Ramos M.D. on 01/02/2019 at 17:23 Addendum Dictated By:Amadeo Ramos MD Addendum Signed By: Addendum Cosigned By: DD/ TD/TT: 01/02/19 PROCEDURE: US PELVIC COMPLETE INDICATIONS: POST COITAL PELVIC PAIN TECHNIQUE: Real-time scanning was performed of the pelvic organs, with image documentation. Additional endovaginal scanning was necessary due to incomplete visualization of the adnexal and endometrial structures by transabdominal scanning. COMPARISON: [facility], , US PELVIC COMPLETE, 12/08/2018, 11:57. FINDINGS: Transabdominal scanning: A mild amount of free pelvic fluid is seen, which is considered to be within physiologic limits. Limited scanning through the kidneys shows no hydronephrosis. Endovaginal scanning: Uterus: Uterus is normal in size at 8.1 x 5 x 3.1 cm. The endometrium measures 3 mm in combined thickness. Ovaries: The right ovary measures 3.2 x 2.2 x 1 cm and demonstrates the presence of a likely outside cyst that measures 1.3 x 1.0 0.8 cm. The left ovary measures 1.8 x 1.9 x 1 cm. No adnexal masses are seen. IMPRESSION: These imaging findings most likely represent a ruptured right ovarian cyst. Dictated by: Timi Carty M.D. on 01/02/2019 at 16:06 Approved by: Timi Carty M.D. on 01/02/2019 at 16:08 [facility] Narrative Medical decision making narrative: Unsure exact cause of patient's pain as it was resolving the emergency department stay. Suspect that ruptured cyst may contribute to pain. Less likely id misplacement as correct placement was seen on ultrasound, less likely infection due to normal labs, and rather benign exam. Patient was given fluconazole as she states she gets frequent yeast infections. Patient instructed to follow up with Gynecology if symptoms persist. Consider further test such as vaginal swabs if symptoms continue, very low suspicion for STDs as she states she has been with her partner for the past 3 years. <Ramonita Mc, DO - Last Filed: 01/05/19 18:41> Lab Data Lab Results 01/02/19 01/02/19 01/02/19 Range/Units 14:15 14:15 14:50 WBC 8.6 (4.5-11.0) X10^3/uL RBC 4.81 (4.0-5.2) X10^6/uL Hgb 13.8 (12.0-16.0) g/dL Hct 40.3 (36-46) % MCV 83.7 (80-100) fL MCH 28.6 (26-34) PG MCHC 34.2 (30-36) % RDW 13.1 (11.6-14.8) % Plt Count 324 (150-400) X10^3/uL Neut % (Auto) 66.0 (50-75) % Lymph % (Auto) 22.8 L (25-40) % Garden % (Auto) 5.9 (3-14) % Eos % (Auto) 4.3 H (2-4) % Baso % (Auto) 1.0 (0-2) % Neut # (Auto) 5700 (2314-2887) /uL Lymph # (Auto) 2000 (4914-0181) /uL [place] # (Auto) 500 (0-900) /uL Eos # (Auto) 400 (0-450) /uL Baso # (Auto) 100 (0-100) /uL PT (10.1-12.7) SECONDS INR (0.9-1.3) APTT (26.4-36.2) SECONDS Sodium (137-145) mmol/L Potassium (3.4-5.1) mmol/L Chloride (98-107) mmol/L Carbon Dioxide (22-32) mmol/L BUN (7-17) mg/dL Creatinine (0.52-1.04) mg/dL Estimated GFR (>60) mL/min BUN/Creatinine Ratio (6-22) Glucose (70-100) mg/dL Calcium (8.4-10.2) mg/dL Total Bilirubin (0.2-1.3) mg/dL AST (14-36) IU/L ALT (9-52) IU/L Alkaline Phosphatase (38-126) U/L Total Protein (6.3-8.2) g/dL Albumin (3.5-5.0) g/dL Globulin (1.7-4.1) g/dL Albumin/Globulin Ratio (1.0-2.8) Lipase (23-300) U/L Urine Color Yellow Urine Appearance Clear Urine pH 6.5 (4.5-8.0) Ur Specific [place] 1.020 (1.000-1.035) Urine Protein Negative (Negative) Urine Glucose (UA) Negative (Negative) g/dL Urine Ketones Negative (NEGATIVE) Urine Occult Blood Negative (Negative) Urine Nitrate Negative (Negative) Urine Bilirubin Negative (NEGATIVE) Urine Urobilinogen 0.2 (0.2) E.U./dL Ur Leukocyte Esterase Negative (NEGATIVE) Urine RBC None seen (0-5/HPF) Urine WBC 0-1/hpf (0-5/HPF) Ur Squamous Epith Cells 1-5 /hpf (0-5/HPF) Urine Bacteria None seen (None) Ur Culture Indicated? Cult not indicated Urine Test Negative (Negative) 01/02/19 01/02/19 Range/Units 14:50 14:50 WBC (4.5-11.0) X10^3/uL RBC (4.0-5.2) X10^6/uL Hgb (12.0-16.0) g/dL Hct (36-46) % MCV (80-100) fL MCH (26-34) PG MCHC (30-36) % RDW (11.6-14.8) % Plt Count (150-400) X10^3/uL Neut % (Auto) (50-75) % Lymph % (Auto) (25-40) % [place] % (Auto) (3-14) % Eos % (Auto) (2-4) % Baso % (Auto) (0-2) % Neut # (Auto) (0544-5781) /uL Lymph # (Auto) (8796-2488) /uL [place] # (Auto) (0-900) /uL Eos # (Auto) (0-450) /uL Baso # (Auto) (0-100) /uL PT 11.5 (10.1-12.7) SECONDS INR 1.0 (0.9-1.3) APTT 27 (26.4-36.2) SECONDS Sodium 141 (137-145) mmol/L Potassium 4.4 (3.4-5.1) mmol/L Chloride 104 (98-107) mmol/L Carbon Dioxide 26 (22-32) mmol/L BUN 11 (7-17) mg/dL Creatinine 0.60 (0.52-1.04) mg/dL Estimated GFR > 60.0 (>60) mL/min BUN/Creatinine Ratio 18.3 (6-22) Glucose 91 (70-100) mg/dL Calcium 9.4 (8.4-10.2) mg/dL Total Bilirubin 0.5 (0.2-1.3) mg/dL AST 21 (14-36) IU/L ALT 22 (9-52) IU/L Alkaline Phosphatase 63 (38-126) U/L Total Protein 7.3 (6.3-8.2) g/dL Albumin 4.3 (3.5-5.0) g/dL Globulin 3.0 (1.7-4.1) g/dL Albumin/Globulin Ratio 1.4 (1.0-2.8) Lipase 30 (23-300) U/L Urine Color Urine Appearance Urine pH (4.5-8.0) Ur Specific [place] (1.000-1.035) Urine Protein (Negative) Urine Glucose (UA) (Negative) g/dL Urine Ketones (NEGATIVE) Urine Occult Blood (Negative) Urine Nitrate (Negative) Urine Bilirubin (NEGATIVE) Urine Urobilinogen (0.2) E.U./dL Ur Leukocyte Esterase (NEGATIVE) Urine RBC (0-5/HPF) Urine WBC (0-5/HPF) Ur Squamous Epith Cells (0-5/HPF) Urine Bacteria (None) Ur Culture Indicated? Urine Test (Negative) Discharge Plan Departure Patient Disposition: Home Clinical Impression: Vaginal yeast infection Ovarian cyst Qualifiers: Laterality: right Qualified Code(s): N83.201 - Unspecified ovarian cyst, right side Discharge Date/Time: 01/02/19 18:11 Interventions: ED Discharge Assessment Last Done: 01/02/19 18:08 Instructions: DI for Vaginal Yeast Infection, DI for Ovarian Cyst Activity Restrictions/Additional Instructions: Thank you for entrusting me with your care today. As discussed, your ultrasound shows a right ovarian cyst and that your IUD is in the right place, your labs are within normal limits. Please follow-up with your primary care provider for further evaluation if her symptoms persist. Take ibuprofen 600 mg every 6 hours for the next 3 days to help with pain control. Return to the emergency department if you develop severe pain, profuse vaginal discharge, syncope, or fevers. I prescribed you do a medication for yeast infection, take 1 pill now and then take the other pills 72 hours later. Prescriptions: No Action cyclobenzaprine 5 MG tablet 5 mg PO BIDP PRNQty: 5 RF: 0 naproxen 375 mg tablet 375 mg PO BID RF: 0 metronidazole 500 mg tablet 500 mg PO BID RF: 0 <Ramonita Mc DO - Last Filed: 01/05/19 18:41> Cosign ED Attending Cosignature Attestation: I was immediately available in the department for consultation. This documentation has been reviewed and I agree with assessment and plan. Supervised by Ramonita Mc,
--- NOTE | 2019-01-02 15:05 | DI.US.S_ITS ---
PROCEDURE: US PELVIC COMPLETE INDICATIONS: POST COITAL PELVIC PAIN TECHNIQUE: Real-time scanning was performed of the pelvic organs, with image documentation. Additional endovaginal scanning was necessary due to incomplete visualization of the adnexal and endometrial structures by transabdominal scanning. COMPARISON: [facility], , PELVIC COMPLETE, 12/08/2018, 11:57. FINDINGS: Transabdominal scanning: A mild amount of free pelvic fluid is seen, which is considered to be within physiologic limits. Limited scanning through the kidneys shows no hydronephrosis. Endovaginal scanning: Uterus: Uterus is normal in size at 8.1 x 5 x 3.1 cm. The endometrium measures 3 mm in combined thickness. Ovaries: The right ovary measures 3.2 x 2.2 x 1 cm and demonstrates the presence of a likely outside cyst that measures 1.3 x 1.0 0.8 cm. The left ovary measures 1.8 x 1.9 x 1 cm. No adnexal masses are seen. IMPRESSION: These imaging findings most likely represent a ruptured right ovarian cyst. Dictated by: Timi Carty M.D. on 01/02/2019 at 16:06 Approved by: Timi Carty M.D. on 01/02/2019 at 16:08
[2019-01-02 15:09] LABS: Prothrombin Time 11.5 SECONDS (10.1-12.7)
[2019-01-02 15:12] LABS: PTT Partial Thromboplastin Tim 27 SECONDS (26.4-36.2)
[2019-01-02 15:13] LABS: Alanine Aminotransferase 22 IU/L (9-52); Albumin 4.3 g/dL (3.5-5.0); Albumin Globulin Ratio 1.4 (1.0-2.8); Alkaline Phosphatase 63 U/L (38-126); Aspartate Aminotransferase 21 IU/L (14-36); BUN Creatinine Ratio 18.3 (6-22); Bilirubin Total 0.5 mg/dL (0.2-1.3); Blood Urea Nitrogen 11 mg/dL (7-17); Calcium 9.4 mg/dL (8.4-10.2); Carbon Dioxide 26 mmol/L (22-32); Chloride 104 mmol/L (98-107); Estimated Glomerular Filt Rate > 60.0 mL/min (>60); Glucose 91 mg/dL (70-100); HEMOLYSIS < 15 (0-50); Lipase 30 U/L (23-300); Potassium 4.4 mmol/L (3.4-5.1); Sodium 141 mmol/L (137-145); Total Protein 7.3 g/dL (6.3-8.2)
[2019-01-02 15:46] VITALS: BP 108/58; PULSE 91; RESP 16; O2SAT 99
[2019-01-02 16:53] VITALS: BP 113/66; PULSE 60; RESP 15; O2SAT 100
== END 2019-01-02 18:11 | disposition home or self-care (01) ==
PROVIDERS: Emergency Medicine; Emergency Provider Nurse Practitioner
DX: N83.201 Unspecified ovarian cyst, right side (principal); B37.3 Candidiasis of vulva and vagina; R55 Syncope and collapse; R10.30 Lower abdominal pain, unspecified
CPT/HCPCS: 36591; 76830; 76856; 80053; 81001; 81025; 83690; 85025; 85610; 85730; 93005; 99283; 99285

== ENCOUNTER → 2019-03-28 13:12 | Outpatient (CLI) | payer OTHER, MEDICAID, SELFPAY | PROVIDERS: Visit Provider Physician Assistant | DX: J02.9 Acute pharyngitis, unspecified (principal) | CPT/HCPCS: 87070 ==